=== PATIENT | male | born 1995 | race Caucasian/White ===

== ENCOUNTER 2019-08-11 18:19 | Emergency (ER) | payer BC ==
[2019-08-11] MEDS ORDERED: LIDOCAINE VISCOUS 2% SOLN 15 ML UDC ONE (19:58)
--- NOTE | 2019-08-11 20:11 | EDPHYS ---
Physician Documentation [facility] Name: Sanya Mcallister Age: 24 yrs Sex: Male : 1995 Arrival Date: 08/11/2019 Time: 18:22 Bed 13 Private MD: ED Physician Vaibhav Pollock HPI: 08/11 20:19 This 24 yrs old Male presents to ER via Ambulatory with complaints of Mouth snw Problem. 20:19 The patient presents with pain. The problem is located in the posterior pharyngx and on snw and under tongue. Onset: The symptoms/episode began/occurred suddenly, 3 day(s) ago, and became persistent. Duration: The symptoms are continuous. Associated signs and symptoms: The patient has no apparent associated signs or symptoms. Severity of symptoms: At their worst the symptoms were moderate. The patient has experienced a previous episode. It is unknown whether or not the patient has recently seen a physician. Historical: - Allergies: 18:49 No Known Allergies; hb - Home Meds: 18:49 None [Active]; hb - PMHx: 18:49 POLYCYSTIC KIDNEY DISEASE; hb - PSHx: 18:49 None; hb - Immunization history:: Adult Immunizations up to date. - Social history:: Smoking status: Patient/guardian denies using tobacco. - Ebola Screening: : No symptoms or risks identified at this time. ROS: 20:17 Constitutional: Negative for fever, chills, and weight loss, Eyes: Negative for injury, snw pain, redness, and discharge, Neck: Negative for injury, pain, and swelling, Cardiovascular: Negative for chest pain, palpitations, and edema, Respiratory: Negative for shortness of breath, cough, wheezing, and pleuritic chest pain, Abdomen/GI: Negative for abdominal pain, nausea, vomiting, diarrhea, and constipation, Back: Negative for injury and pain, : Negative for injury, bleeding, discharge, and swelling, MS/Extremity: Negative for injury and deformity, Skin: Negative for injury, rash, and discoloration, Neuro: Negative for headache, weakness, numbness, tingling, and seizure, Psych: Negative for depression, anxiety, suicide ideation, homicidal ideation, and hallucinations. 20:17 ENT: Positive for ulcerations in mouth, on and underneath tongue. Exam: 20:04 Constitutional: This is a well developed, well nourished patient who is awake, alert, snw and in no acute distress. Head/Face: Normocephalic, atraumatic. Eyes: Pupils equal round and reactive to light, extra-ocular motions intact. Lids and lashes normal. Conjunctiva and sclera are non-icteric and not injected. Cornea within normal limits. Periorbital areas with no swelling, redness, or edema. Neck: Trachea midline, no thyromegaly or masses palpated, and no cervical lymphadenopathy. Supple, full range of motion without nuchal rigidity, or vertebral point tenderness. No Meningismus. Chest/axilla: Normal chest wall appearance and motion. Nontender with no deformity. No lesions are appreciated. Cardiovascular: Regular rate and rhythm with a normal S1 and S2. No gallops, murmurs, or rubs. Normal PMI, no JVD. No pulse deficits. Respiratory: Lungs have equal breath sounds bilaterally, clear to auscultation and percussion. No rales, rhonchi or wheezes noted. No increased work of breathing, no retractions or nasal flaring. Abdomen/GI: Soft, non-tender, with normal bowel sounds. No distension or tympany. No guarding or rebound. No evidence of tenderness throughout. Back: No spinal tenderness. No costovertebral tenderness. Full range of motion. Skin: Warm, dry with normal turgor. Normal color with no rashes, no lesions, and no evidence of cellulitis. MS/ Extremity: Pulses equal, no cyanosis. Neurovascular intact. Full, normal range of motion. Neuro: Awake and alert, GCS 15, oriented to person, place, time, and situation. Cranial nerves II-XII grossly intact. Motor strength 5/5 in all extremities. Sensory grossly intact. Cerebellar exam normal. Normal gait. Psych: Awake, alert, with orientation to person, place and time. Behavior, mood, and affect are within normal limits. 20:04 ENT: External ear(s): are unremarkable, Ear canal(s): are normal, TM's: are normal, Nose: is normal, Mouth: Oral mucosa: noted to have ulceration(s), on the soft palate and tongue and sublingual area, Voice: is normal. Vital Signs: 18:49 BP 143 / 86; Pulse 87; Resp 16; Temp 99.4(TE); Pulse Ox 89% on R/A; Weight 65.77 kg; hb Height 5 ft. 10 in. (177.80 cm); Pain 10/10; 20:13 Pulse 69; Temp 99.0(O); Pulse Ox 99% on R/A; em1 18:49 Body Mass Index 20.81 (65.77 kg, 177.80 cm) hb MDM: 19:31 Patient medically screened. snw 20:18 Data reviewed: vital signs, nurses notes. Data interpreted: Pulse oximetry: on room air snw is 99 %. Interpretation: normal. Counseling: I had a detailed discussion with the patient and/or guardian regarding: the historical points, exam findings, and any diagnostic results supporting the discharge/admit diagnosis, lab results, to return to the emergency department if symptoms worsen or persist or if there are any questions or concerns that arise at home. Special discussion: Based on the history and exam findings, there is no indication for further emergent testing or inpatient evaluation. I discussed with the patient/guardian the need to see the primary care provider for further evaluation of the symptoms. 08/11 19:31 Order name: Strep; Complete Time: 20:20 snw 08/11 20:01 Order name: Throat Culture EDMS Administered Medications: 20:09 Drug: Viscous Lidocaine Liquid (4 %) 5 ml Route: Mucous Membrane; jb4 20:34 Follow up: Response: No adverse reaction; Pain is decreased jb4 Disposition: 08/11/19 20:11 Discharged to Home. Impression: Stomatitis and related lesions. - Condition is Stable. - Discharge Instructions: Herpangina, Pediatric, Stomatitis. - Medication Reconciliation Form, Thank You Letter, Antibiotic Education, Prescription Opioid Use form. - Follow up: Private Physician; When: 2 - 3 days; Reason: Recheck today's complaints, Continuance of care, Re-evaluation by your physician. Follow up: Emergency Department; When: As needed; Reason: Worsening of condition. - Notes: Try letting tums melt on lesions. May mix maalox and benadryl 1:1 and swish and swallow 3-4 times daily. Addendum: 08/14/2019 07:01 Co-signature as Attending Physician, Vaibhav Pollock MD. r n Signatures: Dispatcher [employer] EDCarmen Lopez, RETAIL SUPPORT MANAGER-C RETAIL SUPPORT MANAGER-Csnw Vaibhav Pollock MD MD rn Baxter, Heather, RN RN hb Bryson, James, RN RN jb4 Corrections: (The following items were deleted from the chart) 08/11 20:34 20:11 08/11/2019 20:11 Discharged to Home. Impression: Stomatitis and related lesions. jb4 Condition is Stable. Forms are Medication Reconciliation Form, Thank You Letter, Antibiotic Education, Prescription Opioid Use. Follow up: Private Physician; When: 2 - 3 days; Reason: Recheck today's complaints, Continuance of care, Re-evaluation by your physician. Follow up: Emergency Department; When: As needed; Reason: Worsening of condition. snw
--- NOTE | 2019-08-11 20:11 | ER ---
Nurse's Notes [facility] Name: Sanya Mcallister Age: 24 yrs Sex: Male : 1995 Arrival Date: 08/11/2019 Time: 18:22 Bed 13 Private MD: Diagnosis: Stomatitis and related lesions Presentation: 08/11 18:48 Presenting complaint: Ulcers in mouth and tongue and sore throat x 3 days. Transition hb of care: patient was not received from another setting of care. Onset of symptoms was August 09, 2019. Risk Assessment: Do you want to hurt yourself or someone else? Patient reports no desire to harm self or others. Initial Sepsis Screen: Does the patient meet any 2 criteria? No. Patient's initial sepsis screen is negative. Does the patient have a suspected source of infection? No. Patient's initial sepsis screen is negative. Care prior to arrival: None. 18:48 Method Of Arrival: Ambulatory hb 18:48 Acuity: DORIE 4 hb Historical: - Allergies: 18:49 No Known Allergies; hb - Home Meds: 18:49 None [Active]; hb - PMHx: 18:49 POLYCYSTIC KIDNEY DISEASE; hb - PSHx: 18:49 None; hb - Immunization history:: Adult Immunizations up to date. - Social history:: Smoking status: Patient/guardian denies using tobacco. - Ebola Screening: : No symptoms or risks identified at this time. Screenin:30 Abuse screen: Denies threats or abuse. Nutritional screening: No deficits noted. jb4 Tuberculosis screening: No symptoms or risk factors identified. Fall Risk None identified. Assessment: 19:30 General: Appears in no apparent distress. comfortable, Behavior is calm, cooperative, jb4 appropriate for age. Pain: Complains of pain in mouth Pain does not radiate. Pain currently is 10 out of 10 on a pain scale. Neuro: Level of Consciousness is awake, alert, obeys commands, Oriented to person, place, time, situation. Cardiovascular: Respiratory: Airway is patent Respiratory effort is even, unlabored, Respiratory pattern is regular, symmetrical. GI: No deficits noted. No signs and/or symptoms were reported involving the gastrointestinal system. : No deficits noted. No signs and/or symptoms were reported regarding the genitourinary system. EENT: Reports pain in mouth. Derm: Skin is intact, Skin is pink, warm \T\ dry. Musculoskeletal: Circulation, motion, and sensation intact. Range of motion: intact in all extremities. 20:32 Reassessment: Patient appears in no apparent distress at this time. Patient and/or jb4 family updated on plan of care and expected duration. Pain level reassessed. Patient is alert, oriented x 3, equal unlabored respirations, skin warm/dry/pink. Pt verbalized understanding of d/c and follow up instructions. Ambulated out of ED with steady gait. Vital Signs: 18:49 BP 143 / 86; Pulse 87; Resp 16; Temp 99.4(TE); Pulse Ox 89% on R/A; Weight 65.77 kg; hb Height 5 ft. 10 in. (177.80 cm); Pain 10/10; 20:13 Pulse 69; Temp 99.0(O); Pulse Ox 99% on R/A; em1 18:49 Body Mass Index 20.81 (65.77 kg, 177.80 cm) hb ED Course: 18:22 Patient arrived in ED. rg4 18:39 [facility]C [facility] snw 18:39 Vaibhav Pollock MD is Attending Physician. snw 18:49 Triage completed. hb 18:49 Arm band placed on. hb 19:30 Patient has correct armband on for positive identification. Bed in low position. Call jb4 light in reach. Side rails up X 1. Pulse ox on. NIBP on. 19:43 Strep swab sent to lab. em1 19:57 Alberto Leary, RN is Primary Nurse. jb4 20:33 No provider procedures requiring assistance completed. Patient did not have IV access jb4 during this emergency room visit. Administered Medications: 20:09 Drug: Viscous Lidocaine Liquid (4 %) 5 ml Route: Mucous Membrane; jb4 20:34 Follow up: Response: No adverse reaction; Pain is decreased jb4 Outcome: 20:11 Discharge ordered by . snw 20:33 Discharged to home ambulatory, with friend. jb4 20:33 Condition: stable 20:33 Discharge instructions given to patient, Instructed on discharge instructions, follow up and referral plans. Demonstrated understanding of instructions, follow-up care. 20:34 Patient left the ED. jb4 Signatures: Carmen Jenkins FNP-C PROFESSOR OF LITERATURE-Csnw Obed Hansen em1 Lisa Caldera, RN RN hb Nataliia Jaime rg4 Alberto Leary, RN RN jb4
[2019-08-11 20:41] VITALS: BP 143/86
[2019-08-11 20:43] VITALS: TEMP 99; O2SAT 99
== END 2019-08-11 20:34 | disposition home or self-care (01) ==
LOC: ER 18:19
DX: K12.1 Other forms of stomatitis (principal); Q61.3 Polycystic kidney, unspecified
CPT/HCPCS: 87070; 87081; 99283